=== PATIENT | male | born 1945 | race Caucasian/White ===

== ENCOUNTER 2025-07-01 21:17 | Emergency (ER) | payer MEDICARE ==
[~2025-07-01] VITALS: Ht 170.2 cm; Wt 77.1 kg
[2025-07-01 22:15] VITALS: TEMP 98
[2025-07-01 22:42] LABS: LEUKOCYTE ESTERASE ,URINE TRACE (NEGATIVE); PROTEIN,URINE DIPSTICK NEGATIVE (NEGATIVE); URINE UROBILINOGEN 0.2 mg/dL (0.2 - 1)
[2025-07-01 22:49] LABS: BASOPHILS % 0.5 % (0.0-1.0); EOSINOPHILS % 0.9 % (0.0-6.0); LYMPHOCYTES % 11.8 % (18.0-39.1); MONOCYTES % 5.9 % (4.4-11.3); NEUTROPHILS % 80.5 % (38.7-80.0); RED CELL DISTRIBUTION WIDTH 13.1 % (11.7-14.4)
[2025-07-01 22:55] LABS: EPITHELIAL CELLS,URINE RARE /LPF
[2025-07-01 23:09] LABS: EST GLOMERULAR FILTRATION RATE 55.0 ML/MIN (>=60)
[2025-07-01 23:45] VITALS: PULSE 81; RESP 20
[2025-07-02] MEDS ORDERED: CEFDINIR300 MG PO (00:32)
[2025-07-02 01:20] VITALS: BP 140/68; PULSE 79; RESP 20; O2SAT 99
== END 2025-07-02 01:21 | disposition home or self-care (01) ==
LOC: ER 22:18
DX: N40.1 Benign prostatic hyperplasia with lower urinary tract symptoms (principal); R33.9 Retention of urine, unspecified; N39.0 Urinary tract infection, site not specified; I10 Essential (primary) hypertension; F41.9 Anxiety disorder, unspecified
CPT/HCPCS: 36415; 51700; 74018; 80048; 81001; 85025; 87086; 99284